=== PATIENT | female | born 1985 | race Hispanic/Latino ===

== ENCOUNTER 2020-04-12 05:19 | Emergency (ER) | payer OTHER ==
[~2020-04-12] VITALS: Ht 162.6 cm; Wt 73.5 kg
--- OUTSIDE RECORDS SUMMARY | ~2020-04-12 | XMS | Clinical Summary ---
Demographics + + + | Address | [address] | | | [place] [address] | + + + | Home Phone | | + + + | Preferred Language | Unknown | + + + | Marital Status | Unknown | + + + | Hoahaoism Affiliation | Unknown | + + + | Race | Unknown | + + + | Ethnic Group | Unknown | + + + Author + + + | Author | [facility] | | | and [facility] | + + + | Organization | [facility] | | | and [place] | + + + | Address | Unknown | + + + | Phone | Unavailable | + + + Care Team Providers + +------+ + | Care Pattern Finisher Name | Role | Phone | + +------+ + PCP | Unavailable | + +------+ + Allergies Not on File Medications Not on file Active Problems Not on file Social History + +-------+ +--------+------+ | Tobacco Use | Types | Packs/Day | Years | Date | | | | | Used | | + +-------+ +--------+------+ | Never Assessed | | | | | + +-------+ +--------+------+ + + + | Sex Assigned at | Date Recorded | | | | + + + | Not on file | | + + + Last Filed Vital Signs Not on file Plan of Treatment +--------+---------+ + + + | Date | Type | Specialty | Care Team | Description | +--------+---------+ + + + | 04/14/ | Office | Dermatology | Barbi Hernandez | | | 2020 | Visit | | [address] | | | | | | [address] | | | | | | [place] [address] | | | | | | [phone] | | | | | | | | +--------+---------+ + + + + + +-------+ + | Health Maintenance | Due Date | Last | Comments | | | | Done | | + + +-------+ + | Hepatitis C | | | | | Screening | 6 | | | + + +-------+ + | Vaccine: | | | | | Dtap/Tdap/Td (1 - | 5 | | | | Tdap) | | | | + + +-------+ + | Cervical Cancer | | | | | Screening (Pap) | 6 | | | + + +-------+ + | Vaccine: Influenza | | | | | (#1) | 0 | | | + + +-------+ + Results Not on filefrom Last 3 Months Insurance + +--------+ +--------+ +---------+--------+ | Payer | Benefi | Subscriber | Effect | Phone | Address | Type | | | t Plan | ID | juan jose | | | | | | / | | Dates | | | | | | Group | | | | | | + +--------+ +--------+ +---------+--------+ | [employer] | [employer] | [id number] | 10/02/19 | [phone] | | Medica | | MEDICAID HMO | HEALTH | | 20-Pre | 1 | | id | | | MDCD | | sent | | | | | | [place]MO [place] | | | | | | + +--------+ +--------+ +---------+--------+ + +--------+ +--------+ + + | Guarantor Name | Accoun | Relation to | Date | Phone | Billing Address | | | t Type | Patient | of | | | | | | | | | | + +--------+ +--------+ + + | Anna Lyle | Person | Self | [birth year] | [address] | | | [place] | | 1985 | [phone] | [place] [address] | | | art | | | 1 (Home) | | + +--------+ +--------+ + + Advance Directives + + + + + | Type | Date Recorded | Patient | Explanation | | | | [employer]or Assembler | | + + + + + | Power of | | | | | Breakfast Manager | | | | + + + + + | Advance | | | | | Directive | | | | + + + + +"
[~2020-04-12 05:19] MED LIST: DILAUDID2 MG PO; IBUPROFEN200 M1 PO; IBUPROFEN800 MG PO; NORCO 5-325 TA1 EACH PO; PRENATAL FORMU1 EACH PO; TYLENOL325 M1 PO; VITAMIN D50000 UNI1 PO; ZOFRAN4 MG PO
[2020-04-12] MEDS ORDERED: ULTRAM50 MG PO (07:09)
== END 2020-04-12 07:29 | disposition home or self-care (01) ==
LOC: ED 05:19
DX: N23 Unspecified renal colic (principal); Z88.6 Allergy status to analgesic agent
CPT/HCPCS: 74176; 80053; 81001; 83690; 84703; 85025; 96374; 96375; 99284-25; J1170; J1885; J2405

== ENCOUNTER 2021-09-26 21:57 | Emergency (ER) | payer OTHER ==
[~2021-09-26] VITALS: Ht 162.6 cm; Wt 70.4 kg
[~2021-09-26 21:57] MED LIST changes: +ULTRAM50 MG PO
[2021-09-27] MEDS ORDERED: MIRALAX17 GM PO (00:31)
[2021-09-27] MEDS ORDERED: GAS RELIEF180 MG PO (00:32)
== END 2021-09-27 00:57 | disposition home or self-care (01) ==
LOC: ED 21:57
DX: K59.00 Constipation, unspecified (principal); R14.0 Abdominal distension (gaseous); Z88.5 Allergy status to narcotic agent; Z20.822 Contact with and (suspected) exposure to COVID-19
CPT/HCPCS: 74177; 80053; 81001; 83690; 83880; 84703; 85025; 85610; 96375; 99284-25; C9803; J1170; J2405; Q9967; U0003